=== PATIENT | male | born 1970 | race Caucasian/White ===

== ENCOUNTER → 2021-08-14 | Outpatient (CLI) | payer OTHER ==
--- NOTE | 2021-08-14 13:50 | REP ---
INDICATION: SIJ AND LB PAIN COMPARISON: 07/03/2016 TECHNIQUE: AP, lateral, coned-down views of the lumbar spine. FINDINGS: Three views of the lumbosacral spine demonstrate satisfactory alignment and lordosis without acute fracture / compression injury or subluxation. Lateral view again demonstrates mild facet hypertrophy at L4-5 and L5-S1. No further significant degenerative changes noted. IMPRESSION: 1. Age-appropriate lumbosacral spine radiograph series. <Electronically signed by Jcarlos Juarez > 08/14/21 [id number]
== END ==
LOC: M RAD 09:26
PROVIDERS: ATTEND Chiropractor
DX: M54.50 Low back pain, unspecified (principal); M53.3 Sacrococcygeal disorders, not elsewhere classified

== ENCOUNTER → 2021-10-15 | Outpatient (CLI) | payer OTHER | LOC: M RAD 10:42 | PROVIDERS: ATTEND Chiropractor | DX: M53.3 Sacrococcygeal disorders, not elsewhere classified (principal) ==

== ENCOUNTER → 2021-11-21 | Outpatient (CLI) | payer OTHER ==
[~2021-11-21] MED LIST: PROHANCE 279.3MG/ML 15ML VIAL ONE
== END ==
LOC: M PLAIMG 14:18
PROVIDERS: ATTEND Physician Assistant Surgical
DX: M89.8X8 Other specified disorders of bone, other site (principal); M54.50 Low back pain, unspecified
CPT/HCPCS: 72148; 72197; A9576

== ENCOUNTER → 2021-11-29 | Outpatient (REF) | payer OTHER ==
[2021-11-29 12:49] LABS: TOTAL PROTEIN 7.5 GM/DL (6.4-8.2)
[2021-11-29 13:18] LABS: LIPASE 104 U/L (73-393)
[2021-12-03 12:57] LABS: ALBUMIN 3.99 GM/DL (3.29-5.55); ALBUMIN % 53.2 % (55.8-66.1); ALPHA-1-GLOBULIN % 7.4 % (2.9-4.9); ALPHA-1-GLOBULINS 0.56 GM/DL (0.17-0.41); ALPHA-2-GLOBULINS 1.22 GM/DL (0.42-0.99); ALPHA-2-GLOBULINS % 16.2 % (7.1-11.8); BETA-1-GLOBULINS % 7.3 % (4.7-7.2); BETA-2-GLOBULINS % 7.4 % (3.2-6.5); GAMMA GLOBULIN % 8.5 % (11.1-18.8)
[2021-12-03 12:58] LABS: BETA-1-GLOBULINS 0.55 GM/DL (0.28-0.60); BETA-2-GLOBULINS 0.56 GM/DL (0.19-0.55); GAMMA GLOBULINS 0.64 GM/DL (0.65-1.58)
== END ==
LOC: M LAB REF 11:59
PROVIDERS: ATTEND Registered Nurse
DX: R93.5 Abnormal findings on diagnostic imaging of other abdominal regions, including retroperitoneum (principal); R10.2 Pelvic and perineal pain; M25.551 Pain in right hip

== ENCOUNTER → 2021-11-29 | Outpatient (CLI) | payer OTHER | LOC: M WUC 10:15 | PROVIDERS: ATTEND Registered Nurse | DX: M25.512 Pain in left shoulder (principal) ==

== ENCOUNTER → 2021-12-03 | Outpatient (CLI) | payer OTHER ==
[~2021-12-03] MED LIST changes: +ISOVUE-370 76% 100ML VIAL As Ordered ONE; -PROHANCE 279.3MG/ML 15ML VIAL ONE
== END ==
LOC: M RAD 08:42
PROVIDERS: ATTEND Registered Nurse
DX: R93.5 Abnormal findings on diagnostic imaging of other abdominal regions, including retroperitoneum (principal); I25.10 Atherosclerotic heart disease of native coronary artery without angina pectoris; K57.30 Diverticulosis of large intestine without perforation or abscess without bleeding; M62.89 Other specified disorders of muscle; M85.851 Other specified disorders of bone density and structure, right thigh
CPT/HCPCS: 74177; Q9967

== ENCOUNTER → 2021-12-06 | Outpatient (CLI) | payer OTHER | LOC: M WHC 09:43 | PROVIDERS: ATTEND Registered Nurse | DX: R22.32 Localized swelling, mass and lump, left upper limb (principal) ==

== ENCOUNTER → 2021-12-21 | Outpatient (CLI) | payer OTHER ==
[~2021-12-21] MED LIST changes: +ACET1TAB55 PO; -ISOVUE-370 76% 100ML VIAL As Ordered ONE; +LIDOCAINE 1% MDV 20ML VIAL As Ordered ONE; +TRAM50TA2 PO; +XANA0.5T PO
[2021-12-21 10:25] VITALS: BP 160/86
== END ==
LOC: M IRPRO 08:28
PROVIDERS: ATTEND Registered Nurse
DX: M75.92 Shoulder lesion, unspecified, left shoulder (principal)

== ENCOUNTER → 2021-12-21 | Outpatient (CLI) | payer OTHER ==
[~2021-12-21] MED LIST changes: -LIDOCAINE 1% MDV 20ML VIAL As Ordered ONE
[2021-12-21 10:27] VITALS: BP 160/86
== END ==
LOC: M IRPRO 07:52
PROVIDERS: ATTEND Registered Nurse
DX: C83.35 Diffuse large B-cell lymphoma, lymph nodes of inguinal region and lower limb (principal)

== ENCOUNTER → 2022-07-04 | Outpatient (CLI) | payer OTHER ==
[~2022-07-04] MED LIST changes: +ALLO300T2 PO; +OLAN1TAB20 PO; +ONDA8TAB8 PO; +PRED50TA PO; +PROC10TA5 PO
== END ==
LOC: M PLARAD 13:10
PROVIDERS: ATTEND Physician Assistant
DX: M75.01 Adhesive capsulitis of right shoulder (principal); R93.6 Abnormal findings on diagnostic imaging of limbs